=== PATIENT | male | born 2000 | race Caucasian/White ===

== ENCOUNTER → 2020-09-08 12:00 | Outpatient (BNVA) | payer OTHER, SELFPAY | PROVIDERS: Family Provider Pediatrics Adolescent Medicine; PCP Pediatrics Adolescent Medicine; Visit Provider Nurse Practitioner Family | DX: J02.9 Acute pharyngitis, unspecified (principal); Z20.822 Contact with and (suspected) exposure to COVID-19 | CPT/HCPCS: 87635; 87880 ==

== ENCOUNTER → 2021-07-17 10:07 | Outpatient (BNVA) | payer MEDICAID, SELFPAY | PROVIDERS: Family Provider Pediatrics Adolescent Medicine; Visit Provider Family Medicine Adult Medicine | DX: Z78.9 Other specified health status (principal); Z83.3 Family history of diabetes mellitus; R45.4 Irritability and anger; R23.8 Other skin changes; Z13.6 Encounter for screening for cardiovascular disorders | CPT/HCPCS: 80053; 83036; 84443; 85025 ==